=== PATIENT | male | born 1970 | race Caucasian/White ===

== ENCOUNTER 2024-04-05 07:55 | Day surgery (SDC) | payer BC, SELFPAY ==
[2024-04-04 15:24] VITALS: BMI 29.1
[2024-04-05] VITALS (7 sets, daily range): BP systolic 104–119; BP diastolic 65–87; PULSE 69–84; RESP 16–19; TEMP 36.4–36.9; O2SAT 92–98; BMI 29.4
[2024-04-05] MEDS: Lactated Ringers 1,000 ML 100 ML IVCONT (08:32)
--- NOTE | 2024-04-05 09:50 | P.CONAN_ITS ---
Documented by User: Sadaf Staples NP 04/04/24 09:18 HPI - Anesthesia Eval Consult details Narrative: 54yo M for Right Lateral Rectus Eye Muscle Recession,Right Medial Rectus Resection [facility] Active Problems Active Problems: All Active Problems Headache (Acute) Past Medical History Medical History (Updated 04/04/24 @ 15:27 by Kanchan Odonnell, YONATHAN) JOHN (obstructive sleep apnea) Exertional chest pain Hyperlipidemia Back pain Surgical History Surgical History (Updated 04/04/24 @ 15:23 by Kanchan Odonnell, RN) Hx of colonoscopy Hx of non-cataract eye surgery (~1976) Social History Social History (Updated 04/04/24 @ 15:24 by Kanchan Odonnell, YONATHAN) Household Members: Family Housing: House Are you a primary primary care provider to a significant other at home: No Do you presently have visiting nurse or other home services: No Patient Tobacco Use Status: Former Tobacco user Tobacco use type: Cigarette Smoked in Last 30 Days: No Use of substances other than those prescribed or required for medical reasons: No Have you been hit, kicked, punched, or otherwise hurt by someone within the past year? If so, by whom?: No Are you DNR?: No Advance Directives: No Advance Directives Information Provided: Yes Advance Directives on File: No Recently lost weight without trying: No Nutrition Risks: No Nutritional Risk Poor oral hygiene: No Meds Allergies Allergy/AdvReac Type Severity Reaction Status Date / Time No Known Allergies Allergy Verified 04/04/24 15:24 Home Medications ?Medication ?Instructions ?Recorded ?Confirmed ?Last Taken ?Type No Known Home Meds 04/05/24 04/05/24 Unknown History Exam Height,Weight and Vital Signs: Weight 92.533 kg Assessment and Plan Assessment Anesthesia Assessment: Chart Reviewed Documented by User: Love Walsh DO 04/05/24 10:18 PMFSH Past Medical History Medical History (Updated 04/04/24 @ 15:27 by Kanchan Odonnell RN) JOHN (obstructive sleep apnea) Exertional chest pain Hyperlipidemia Back pain Family History Family history of problems with anesthesia: No Surgical History Surgical History (Updated 04/04/24 @ 15:23 by Kanchan Odonnell RN) Hx of colonoscopy Hx of non-cataract eye surgery (~1976) History of Problems with Anesthesia: No Social History Social History (Updated 04/04/24 @ 15:24 by Kanchan Odonnell RN) Household Members: Family Housing: House Are you a primary primary care provider to a significant other at home: No Do you presently have visiting nurse or other home services: No Patient Tobacco Use Status: Former Tobacco user Tobacco use type: Cigarette Smoked in Last 30 Days: No Use of substances other than those prescribed or required for medical reasons: No Have you been hit, kicked, punched, or otherwise hurt by someone within the past year? If so, by whom?: No Are you DNR?: No Advance Directives: No Advance Directives Information Provided: Yes Advance Directives on File: No Recently lost weight without trying: No Nutrition Risks: No Nutritional Risk Poor oral hygiene: No Meds Allergies Allergy/AdvReac Type Severity Reaction Status Date / Time No Known Allergies Allergy Verified 04/04/24 15:24 Home Medications ?Medication ?Instructions ?Recorded ?Confirmed ?Last Taken ?Type No Known Home Meds 04/05/24 04/05/24 Unknown History Exam Exam Date and Time: 04/05/24 0950 Height,Weight and Vital Signs: Weight 92.533 kg Height 5 ft 9.5 in Weight 91.56 kg Vital Signs Temperature 98.5 F 04/05/24 08:29 Pulse Rate 71 04/05/24 08:29 Respiratory Rate 19 04/05/24 08:29 Blood Pressure 119/87 04/05/24 08:29 Pulse Oximetry 98 04/05/24 08:29 Oxygen Delivery Method Room Air 04/05/24 08:29 Temperature 98.5 F 04/05/24 08:29 Pulse Rate 71 04/05/24 08:29 Respiratory Rate 19 04/05/24 08:29 Blood Pressure 119/87 04/05/24 08:29 Pulse Oximetry 98 04/05/24 08:29 Oxygen Delivery Method Room Air 04/05/24 08:29 Airway Mallampati Class: II TM Dist: >3cm Neck ROM: Full Loose/Missing/Broken Teeth: No (patient denies any loose or broken teeth) Heart: S1S2 Lungs: CTAB Assessment and Plan Assessment Anesthesia Assessment: Anesthesia Plan Discussed and Chart Reviewed Final Anesthetic Review Family History of Problems with Anesthesia: No History of Problems with Anesthesia: No NPO: Yes ASA Class: II Final Preanesthetic Review: No Changes in Pt Med Stat, Meds/Allgs Chart Reviewed, Consent Obtained/Reviewed and Anes Risks/Benef Reviewed Patient Risk: Low Procedure Risk: Low Anesthetic Plan Anesthetic Plan: GA and Agree w/ Assess. and Plan Disposition: Standard PACU
[2024-04-05] MEDS: Acetaminophen 325 MG TABLET 650 MG PO (11:33)
--- NOTE | 2024-04-05 12:56 | P.OPHTHAL_ITS ---
Ophthalmology Operative Note Date of Service: 04/05/24 Narrative: Diagnosis exotropia. Procedures 1. Recession of left lateral rectus 8 mm 2. Resection of left medial rectus [address] Bojorquez. Anesthesia general. Complications none. The patient was brought to the operating room placed under general anesthesia. The eyes were prepped and draped in the usual sterile ophthalmic fashion. A lid speculum was placed in the left eye and an incision was made at bare sclera in the inferotemporal fornix. The lateral rectus muscle was hooked and secured with a double-armed Vicryl suture. It was disinserted from the globe and reattached to a position 8 mm behind the original insertion. Conjunctiva was closed with interrupted Vicryl sutures. An incision was then made at bare sclera in the inferonasal fornix. The medial rectus muscle was hooked and placed on a muscle clamp. The overlying fascial attachments were dissected free and a 6 mm resection was marked off with cautery. The resection point was secured with a double-armed Vicryl suture and the distal muscle resec tootie. The resection point was then drawn forward to the original insertion with the Vicryl suture. Conjunctiva was closed with interrupted Vicryl sutures. The patient was then awoken from general anesthesia and discharged to postoperative recovery in good condition
== END 2024-04-05 12:08 | disposition home or self-care (01) ==
PROVIDERS: PCP Registered Nurse; Visit Provider Ophthalmology
PROC: (CPT 67312; principal; 2024-04-05 09:30)
DX: H50.15 Alternating exotropia (principal); E78.5 Hyperlipidemia, unspecified; M54.9 Dorsalgia, unspecified; R07.89 Other chest pain; Z79.899 Other long term (current) drug therapy
CPT/HCPCS: 67312; J1100; J1596; J1885; J2003; J2250; J2405; J2704; J3010